=== PATIENT | female | born 1955 | race Asian ===

== ENCOUNTER 2017-01-01 11:40 | Day surgery (SDC) | payer BC ==
[~2017-01-01] VITALS: Ht 149.9 cm; Wt 74.8 kg
[2017-01-01] MEDS ORDERED: ONDANSETRON HCL 4 MG/2 ML VIAL IVP PRN (15:15)
[2017-01-01] MEDS ORDERED: IBUPROFEN 800 MG TABLET PO PRN (15:15)
[2017-01-01] MEDS ORDERED: OXYCODONE/ACETAMINOPHEN 5-325 TABLET PO PRN ×2 (15:15)
[2017-01-01 16:43] VITALS: BP_SYST 123
== END 2017-01-01 16:40 | disposition home or self-care (01) ==
LOC: SDS 11:40 → SMU 11:40 → SDS 16:40
PROVIDERS: ATTEND Obstetrics & Gynecology
DX: N85.8 Other specified noninflammatory disorders of uterus (principal); I10 Essential (primary) hypertension; F41.8 Other specified anxiety disorders; E03.9 Hypothyroidism, unspecified; Z88.8 Allergy status to other drugs, medicaments and biological substances; Z68.36 Body mass index [BMI] 36.0-36.9, adult; Z79.899 Other long term (current) drug therapy; Z90.49 Acquired absence of other specified parts of digestive tract; Z82.49 Family history of ischemic heart disease and other diseases of the circulatory system
CPT/HCPCS: 36415; 58558; 86886; 86900; 86901; 88305; J7120